=== PATIENT | male | born 1955 | race Hispanic/Latino ===

== ENCOUNTER 2018-08-29 23:23 | Emergency (ER) | payer BC, OTHER ==
[~2018-08-29] VITALS: Ht 172.7 cm; Wt 84.8 kg
[~2018-08-29 23:23] MED LIST: ibuprofen PO; multivitamin PO; vitamin E PO
== END 2018-08-30 00:30 | disposition home or self-care (01) ==
LOC: ER 23:23
DX: I10 Essential (primary) hypertension (principal)
CPT/HCPCS: 99283